=== PATIENT | male | born 2000 | race Caucasian/White ===

== ENCOUNTER 2025-08-25 01:36 | Emergency (ER) | payer BC, OTHER ==
[2025-08-25 01:43] VITALS: PULSE 97; RESP 18; TEMP 98.2; BMI 26.6
[2025-08-25] MEDS ORDERED: KETOROLAC TROMETHAMINE 30 MG/1 ML VIAL ONE (01:54)
[2025-08-25] MEDS ORDERED: ONDANSETRON 4 MG/2 ML VIAL ONE (01:54)
[2025-08-25] MEDS: KETOROLAC TROMETHAMINE 30 MG/1 ML VIAL IVPUSH ONE (01:55)
[2025-08-25] MEDS: morphine CARPU-JECT 4 MG/1 ML DISP.SYRIN IVPUSH ONE (01:55)
[2025-08-25] MEDS: SODIUM CHLORIDE 1,000 ML IV ONE (01:55)
[2025-08-25] MEDS: ONDANSETRON 4 MG/2 ML VIAL IVPUSH ONE (01:56)
[2025-08-25 02:33] LABS: ABSOLUTE IMMATURE GRANULOCYTES 0.03 x10^3/uL (0.0-0.031); BASOPHILS # 0.06 x10^3/uL (0.01-0.08); EOSINOPHIL % 2.1 % (0.8-7.0); EOSINOPHILS # 0.17 x10^3/uL (0.04-0.54); MCHC 34.6 g/dl (32.3-36.5); MEAN CELL VOLUME 86.2 fl (79.0-92.2); MEAN PLT VOLUME 10.0 fl (9.4-12.4); MONOCYTE # 0.72 x10^3/uL (0.30-0.82); MONOCYTE % 8.7 % (5.3-12.2); RDW 11.7 % (11.9-15.3)
[2025-08-25 02:50] LABS: GLUCOSE,RANDOM 121.0 mg/dL (74-106); TOT PROT 7.7 g/dl (6.4-8.2)
[2025-08-25 02:51] LABS: CO2 23.0 mmol/L (21-32)
[2025-08-25 02:53] LABS: ALK PHOS 75.0 U/L (40-150)
[2025-08-25 02:55] LABS: SGOT/AST 20.0 U/L (5-34); SGPT/ALT 20.0 U/L (0-55)
[2025-08-25 02:56] LABS: CREATININE 1.11 mg/dL (0.55-1.3)
[2025-08-25 03:16] LABS: HCV DIAGNOSTIC IN-HOUSE W/RFLX NON-REACTIVE (NONREACTIVE); HIV INTERPRETATION NEGATIVE (NEGATIVE)
[2025-08-25 03:44] VITALS: BP 123/80
[2025-08-25 04:51] LABS: URINE APPEARANCE CLOUDY; URINE COLOR YELLOW
[2025-08-25 04:52] LABS: URINE BILIRUBIN NEGATIVE (NEGATIVE); URINE GLUCOSE (UA) NEGATIVE (NEGATIVE); URINE KETONE NEGATIVE (NEGATIVE)
[2025-08-25 04:53] LABS: URINE LEUK ESTERASE NEGATIVE (NEGATIVE); URINE NITRITE NEGATIVE (NEGATIVE); URINE PROTEIN 30 (NEGATIVE); URINE UROBILINOGEN 1.0 mg/dL (0.2-1.0)
== END 2025-08-25 04:33 | disposition home or self-care (01) ==
LOC: FER 01:36
PROC: 3E0333Z Introduction of Anti-inflammatory into Peripheral Vein, Percutaneous Approach (ICD-10-PCS; principal; 2025-08-25)
PROC: 3E033NZ Introduction of Analgesics, Hypnotics, Sedatives into Peripheral Vein, Percutaneous Approach (ICD-10-PCS; 2025-08-25)
PROC: 3E033GC Introduction of Other Therapeutic Substance into Peripheral Vein, Percutaneous Approach (ICD-10-PCS; 2025-08-25)
PROC: 3E0337Z Introduction of Electrolytic and Water Balance Substance into Peripheral Vein, Percutaneous Approach (ICD-10-PCS; 2025-08-25)
DX: N21.0 Calculus in bladder (principal); N13.30 Unspecified hydronephrosis; R11.2 Nausea with vomiting, unspecified; R10.31 Right lower quadrant pain
CPT/HCPCS: 36415; 74176-TC; 80053; 81003; 85025; 86803; 87389; 99285-25